=== PATIENT | male | born 1925 | race Caucasian/White ===

== ENCOUNTER 2016-09-26 21:27 | Observation (INO) | payer MEDICARE, BC ==
[~2016-09-26] VITALS: Ht 180.3 cm; Wt 89.3 kg
[~2016-09-26 21:27] MED LIST: ACIDOPHILU1 Billion; ACIDOPHILUS PO; ADVIL200 MG PO; ALDACTONE 25MG25 M1 PO; ALDACTONE50 MG PO; ANTIVERT 25MG25 MG PO; ASPIRIN 32325 MG/TAB PO; CELEXA; CELEXA10 MG PO; CEPHALEXIN500 M1 PO; CLEOCIN HCL300 MG PO; COLACE 100100 MG/CAP PO; DEMADEX10 MG PO; DULCOLAX; DULCOLAX10 MG RC; DYAZIDE 25 MG-31 CAP PO; FERROUS SU325 MG/TAB PO; FLAGYL500 MG PO; FLOMAX 0.40.4 MG/CAP PO; FLONASE NASAL S16 GM NS; IBIFON 600600 MG PO; IMODIUM 2MG CAPS2 MG PO; LEVAQUIN 5500 MG/TA1 PO; LEVAQUIN 750MG750 M1 PO; MILK OF MAGNESI30 ML PO; MIRALAX PA17 GM/Dose PO; MULTIPLE VITAMI1 CAP PO; MVI; MYLANTA 150 ML150 M1 PO; NORCO 325 MG-7.1 TAB PO; OSCAL 500MG/VI500 MG PO; PERIDEX (CHLOR480 ML MM; PHENERGAN 25 TA25 MG PO; PRIL40 PO; PRILOSEC 20MG20 MG PO; PRINIVIL2.5 MG PO; PROSCAR; PROSCAR 5MG5 MG PO; SALINE MIST 4444 ML NS; SALINE MIST 4545 ML NS; SEROQUEL 2525 MG/TAB PO; TEMOVATE0.052 TP; TOBRADEX 0.1%-01 OIN OP; TUMS500 MG PO; TYLENOL 325MG325 MG PO; VENTOLIN0.09 MG IH; VITAMIN C500 MG PO; ZOCOR 20MG20 MG PO
[2016-09-26 21:44] LABS: BASO % 0.2 % (0.0-2.0); EOS % 0.2 % (0-4.0); GRAN # 10.1 (1.4-6.5); GRAN % 87.4 % (42.2-75.2); HEMOGLOBIN 12.1 g/dl (13.5-18.0); LYMPH # 0.8 (1.2-3.4); LYMPH % 7.3 % (20.0-51.0); MEAN CELL VOLUME 89 fl (80.0-100.0); MEAN CORPUSCULAR HEMOGLOBIN 30 pg (27.0-31.0); MEAN CORPUSCULAR HGB CONC 34 g/dl (33.0-37.0); MEAN PLATELET VOLUME 10.5 fl (7.4-10.4); MONO # 0.5 (0.1-0.6); MONO % 4.6 % (1.7-9.3); PLATELET COUNT 170 K/mm3 (130-400); RED BLOOD COUNT 4.03 M/mm3 (4.20-5.60); REDCELL DISTRIBUTION WIDTH-CV 15.5 % (11.5-14.5); WHITE BLOOD COUNT 11.6 K/mm3 (4.8-10.8)
[2016-09-26 21:47] LABS: INR 1.2 (0.8-3.0); PROTHROMBIN TIME 12.8 SECONDS (9.7-12.8)
[2016-09-26 21:50] LABS: ARTERIAL BLD GAS O2 SATURATION 94.2 % (92-100); ARTERIAL BLOOD GAS BASE EXCESS -0.6 (-2-2); ARTERIAL BLOOD GAS HCO3 22.8 meq/L (22-26); ARTERIAL BLOOD GAS PO2 75.1 mmHg (80-100); ARTERIAL BLOOD GAS pH 7.45 (7.35-7.45)
[2016-09-26 21:51] LABS: ALLEN TEST YES; ALLENS TEST RESULT PASS; ARTERIAL BLD GAS TCO2 CT 23.8; ATS? YES
[2016-09-26 21:55] LABS: ADJUSTED CALCIUM 9.5 mg/dL (8.4-10.2); ALANINE AMINOTRANSFERASE 38 U/L (21-72); ALBUMIN 4.1 gm/dL (3.5-5.0); ALKALINE PHOSPHATASE 89 U/L (50-136); ANION GAP 13 mmol/L (7-16); BILIRUBIN,TOTAL 1.5 mg/dL (0.0-1.0); BLOOD UREA NITROGEN 34 mg/dL (9-20); CALCIUM 9.6 mg/dL (8.4-10.2); CARBON DIOXIDE 29 mmol/L (22-30); CHLORIDE 99 mmol/L (98-107); CREATINE KINASE 469 U/L (55-170); CREATININE, serum 1.62 mg/dL (0.66-1.25); GLUCOSE 136 mg/dL (74-106); POTASSIUM 3.9 mmol/L (3.4-5.0); SODIUM 141 mmol/L (137-145); TOTAL PROTEIN 7.8 gm/dL (6.4-8.2)
[2016-09-26 22:06] LABS: TROPONIN-I 0.061 ng/mL (0.000-0.034)
[2016-09-26 23:19] LABS: PH 7 (5-8); SQUAMOUS EPITHELIAL None Seen /hpf; URINE APPEARANCE Clear; URINE BACTERIA Rare /hpf; URINE BILIRUBIN Negative (NEGATIVE); URINE BLOOD Negative (NEGATIVE); URINE COLOR Yellow; URINE GLUCOSE Negative (NEGATIVE); URINE KETONE Negative (NEGATIVE); URINE RBC 0-2 /hpf; URINE UROBILINOGEN Negative (NEGATIVE); URINE WBC None Seen /hpf
[2016-09-26 23:36] LABS: INFLUENZA B NEGATIVE
[2016-09-27] VITALS (7 sets, daily range): BP systolic 111–140; BP diastolic 48–59; PULSE 62–88; TEMP 98.4–100
[2016-09-27 12:33] LABS: BASO % 0.4 % (0.0-2.0); EOS # 0.1 (0.0-0.7); EOS % 1.3 % (0-4.0); GRAN # 5.9 (1.4-6.5); GRAN % 77.5 % (42.2-75.2); LYMPH # 1.1 (1.2-3.4); LYMPH % 14.2 % (20.0-51.0); MEAN CELL VOLUME 91 fl (80.0-100.0); MEAN CORPUSCULAR HGB CONC 33 g/dl (33.0-37.0); MEAN PLATELET VOLUME 10.3 fl (7.4-10.4); MONO # 0.5 (0.1-0.6); MONO % 6.3 % (1.7-9.3); PLATELET COUNT 155 K/mm3 (130-400); RED BLOOD COUNT 3.84 M/mm3 (4.20-5.60); REDCELL DISTRIBUTION WIDTH-CV 15.9 % (11.5-14.5); WHITE BLOOD COUNT 7.6 K/mm3 (4.8-10.8)
[2016-09-27 12:35] LABS: HEMOGLOBIN 11.6 g/dl (13.5-18.0); MEAN CORPUSCULAR HEMOGLOBIN 30 pg (27.0-31.0)
[2016-09-27 13:00] LABS: CREATININE, serum 1.41 mg/dL (0.66-1.25); POTASSIUM 3.7 mmol/L (3.4-5.0)
[2016-09-28 04:43] VITALS: BP 130/52; PULSE 57; TEMP 99.8
[2016-09-28 07:32] VITALS: BP 130/58; PULSE 65; TEMP 98.3
[2016-09-28 07:41] LABS: BASO % 0.6 % (0.0-2.0); EOS # 0.1 (0.0-0.7); EOS % 1.5 % (0-4.0); GRAN # 3.6 (1.4-6.5); GRAN % 68.7 % (42.2-75.2); LYMPH # 1.1 (1.2-3.4); LYMPH % 20.9 % (20.0-51.0); MEAN CELL VOLUME 92 fl (80.0-100.0); MEAN CORPUSCULAR HGB CONC 33 g/dl (33.0-37.0); MEAN PLATELET VOLUME 10.8 fl (7.4-10.4); MONO # 0.4 (0.1-0.6); MONO % 7.9 % (1.7-9.3); PLATELET COUNT 149 K/mm3 (130-400); RED BLOOD COUNT 3.44 M/mm3 (4.20-5.60); WHITE BLOOD COUNT 5.2 K/mm3 (4.8-10.8)
[2016-09-28 07:45] LABS: HEMATOCRIT 31.6 % (42.0-52.0); HEMOGLOBIN 10.4 g/dl (13.5-18.0); MEAN CORPUSCULAR HEMOGLOBIN 30 pg (27.0-31.0)
[2016-09-28 07:48] LABS: CALCIUM 8.4 mg/dL (8.4-10.2); CREATININE, serum 1.36 mg/dL (0.66-1.25); POTASSIUM 3.4 mmol/L (3.4-5.0)
[2016-09-28] MEDS ORDERED: AMOXICILLIN 8751 TAB PO (11:22)
[2016-09-28] MEDS ORDERED: DEMADEX10 MG PO (11:23)
[2016-09-28] MEDS ORDERED: ROBITUSSIN DM 105 ML PO (11:23)
[2016-09-28 12:08] VITALS: BP 111/47; PULSE 60; TEMP 99.3
== END 2016-09-28 14:20 ==
LOC: COL.ER 21:27 → MEDICAL 23:04
PROVIDERS: Family Medicine
DX: R50.9 Fever, unspecified (principal); K04.7 Periapical abscess without sinus; R79.89 Other specified abnormal findings of blood chemistry; M60.9 Myositis, unspecified; N18.9 Chronic kidney disease, unspecified; N40.0 Benign prostatic hyperplasia without lower urinary tract symptoms; M54.9 Dorsalgia, unspecified; W19.XXXA Unspecified fall, initial encounter; R54 Age-related physical debility
CPT/HCPCS: G0378; G8962-GO; G8987-GO; J0696; J1644; J7030

== ENCOUNTER → 2017-02-22 | Outpatient (REF) ==
[~2017-02-22] MED LIST changes: +AMOXICILLIN 8751 TAB PO; +ROBITUSSIN DM 105 ML PO
== END ==
LOC: ZLAB.WCH 18:11
DX: Z01.89 Encounter for other specified special examinations (principal)